=== PATIENT | female | born 1985 | race Caucasian/White ===

== ENCOUNTER → 2021-10-02 | Outpatient (REF) ==
--- NOTE | 2021-10-02 14:33 | Diagnostic Imaging Report ---
EXAMINATION: Magnetic resonance imaging of the right shoulder without contrast. DATE: October 02, 2021. COMPARISON: None. HISTORY: 36-year-old female, right shoulder pain. TECHNIQUE: Magnetic Resonance Imaging sequences were performed of the shoulder without contrast. FINDINGS: ROTATOR CUFF, LIGAMENTS, TENDONS, AND MUSCLES: The supraspinatus, infraspinatus, teres minor, and subscapularis tendons and muscles are intact. There is normal rotator cuff muscle bulk and signal. LONG HEAD OF BICEPS: The biceps labral attachment and long head of the biceps tendon is intact. The long head of the biceps tendon is normally positioned within the bicipital groove. GLENOHUMERAL JOINT: The humeral head is well positioned relative to the glenoid. The labrum is grossly intact. There is no identified paralabral cyst. The articular cartilage is grossly intact. There is no joint effusion. ACROMIOCLAVICULAR JOINT: The acromioclavicular joint is normally aligned. The coracoclavicular and coracoacromial ligaments are intact. There are no degenerative changes of the acromioclavicular joint. BONE: There is no os acromiale. There is no Hill-Sachs deformity. There is no acute fracture, bone contusion, or evidence of osteonecrosis. BURSAE AND SOFT TISSUES: There are several right axillary lymph nodes present measuring up to approximately 10 mm in short axis. Additional bursal an soft tissue assessment is unremarkable. IMPRESSION: 1. Intact rotator cuff and proximal long head of the biceps tendon. 3. Grossly intact labrum and unremarkable additional glenohumeral joint assessment. 4. Intact acromioclavicular joint. 5. Several prominent right axillary lymph nodes of unclear exact etiology. Recommend correlation and workup for cause. Dictated by: Dictated on workstation # [id number]
== END ==
LOC: OCC 12:00
PROVIDERS: ATTEND Nurse Practitioner Family
DX: M25.511 Pain in right shoulder (principal)
CPT/HCPCS: 73221